=== PATIENT | male | born 1960 | race Caucasian/White ===

== ENCOUNTER 2019-11-16 21:08 | Emergency (ER) | payer OTHER, SELFPAY ==
--- NOTE | ~2019-11-16 | XR_ITS ---
XR chest 1V portable DATE: 11/16/2019 21:48 INDICATION: Shortness of breath. Covid-positive 6 days ago. TECHNIQUE: Portable AP chest on 12/03/2019 at 2141 hours COMPARISON: 05/01/2008 portable AP chest FINDINGS: Heart size is normal. No pulmonary vascular congestion or pneumothorax. No apparent pleural effusion. There is suggestion of mild patchy infiltrate and/atelectasis bilaterally, left greater than right. IMPRESSION: Suggestion of mild patchy infiltrate, left greater than right Reviewed, dictated and finalized at location A.
[2019-11-16 21:14] VITALS: BP 165/104; PULSE 73; RESP 17; TEMP 37; O2SAT 94
[2019-11-16 21:23] VITALS: BP 165/104; PULSE 73; PULSE 74; RESP 16; O2SAT 92
--- NOTE | 2019-11-16 21:29 | ECG_ITS ---
Measurements Intervals [place] Rate: 72 P: 29 [place]: 146 QRS: -33 QRSD: 113 T: 3 QT: 385 QTc: 423 Interpretive Statements SINUS RHYTHM LEFT AXIS DEVIATION INCOMPLETE RIGHT BUNDLE BRANCH BLOCK BORDERLINE T WAVE ABNORMALITY- ANT/INF LEADS BASELINE WANDER- I, II BORDERLINE ECG Electronically Signed On 11-17-2019 6:54:26 CDT by Kosta Reid D.O.
--- NOTE | 2019-11-16 21:32 | ED.SOB ---
HPI - SOB/Dyspnea General Chief Complaint: Shortness of Breath/Dyspnea Stated Complaint: short of breath, diagnosed last wednesday Time Seen by Provider: 11/16/19 21:14 Source: patient Mode of arrival: ambulatory Limitations: no limitations History of Present Illness HPI Narrative: This patient is a 58 year old male with history of hypertension and recent diagnosis of COVID 19 who presents for evaluation of shortness of breath . He reports 1 week ago he developed headache, chills, loss of taste/smell, myalgia and a dry cough. He tested positive for COVID-19 on Wednesday. Over the weekend, he states his headache and chills resolved, but over the past 3 days he has been developing some sob. Tonight he reports he was laying there and he felt like he was sob talking . He denies fever, nausea, vomiting or diarrhea. He also denies chest pain. Related Data Home Medications Medication Instructions Recorded Confirmed atorvastatin 40 mg tablet 40 mg PO DAILY 08/10/19 08/10/19 lisinopril 10 1 tablet PO DAILY 08/10/19 08/10/19 mg-hydrochlorothiazide 12.5 mg tablet loratadine 10 mg capsule 10 mg PO DAILY 08/10/19 08/10/19 melatonin 10 mg capsule 10 mg PO cap 08/10/19 08/10/19 montelukast 10 mg tablet 10 mg PO DAILY 08/10/19 08/10/19 trazodone 50 mg tablet 50 mg PO DAILY tablet 08/10/19 08/10/19 Allergies Allergy/AdvReac Type Severity Reaction Status Date / Time Cephalosporins Allergy Severe Wheezing Verified 11/15/19 12:58 latex Allergy Severe CANKER Verified 11/15/19 12:58 SORES benzonatate Allergy Unknown Unknown Verified 11/15/19 12:58 ceftriaxone Allergy Unknown unk Verified 11/15/19 12:58 Penicillins Allergy Unknown Unknown Verified 11/15/19 12:58 CEFTRIAXONE SODIUM Allergy Severe Stopped Uncoded 11/15/19 12:58 Breathing Review of Systems Review of Systems: All systems reviewed & are unremarkable except as noted in HPI and below Constitutional: Constitutional: Reports chills and Reports fatigue ENT: Denies dizziness and Denies sore throat Cardiovascular: Cardiovascular: Denies chest pain Respiratory: Respiratory: Reports cough, Reports dyspnea and Denies wheezing Gastrointestinal: Gastrointestinal: Denies abdominal pain, Denies diarrhea, Denies nausea and Denies vomiting Neurologic: Reports headache(s) (now resolved) [facility] Past Medical History Medical History (Updated 11/16/19 @ 23:00 by Claudine Yin MD) Essential (primary) hypertension Surgical History Surgical History (Updated 11/16/19 @ 21:39 by Claudine Yin MD) Hx of appendectomy Social History Social History Smoking status: Never smoker Alcohol intake: current Exam Const: General: healthy appearing, no acute distress and alert Orientation/consciousness: patient oriented x3 HENMT: Head: normocephalic and atraumatic Face and sinus: face symmetric Mouth: Yes Normal oral and palatal mucosa present, Yes lip normal, Yes oropharynx normal and Yes moist mucous membranes Eyes: EOM: EOMs intact bilaterally Chest: Chest palpation & inspection: normal inspection of the chest Resp: Effort & Inspection: normal respiratory effort, no retractions and no use of accessory muscles Auscultation: clear to auscultation bilaterally and no wheezes Cardio: Rate: regular rate Rhythm: regular rhythm Heart sounds: no murmurs GI: GI Palp: Yes Soft to palpation, No Tenderness to palpation present (GI), No Guarding due to palpation present (GI) and No Rigid due to palpation Skin: General skin exam: normal color Rashes: no rashes Neuro: General: patient oriented x3, moves all extremities and CN's II-XI intact bilaterally Course Reevaluation(s) Reevaluation #1: I discussed with patient that xray shows pneumonia likely from covid. His oxygen saturation runs 92-96% on room air. I discussed with patient options of observing in hospital overnight and going home for outpatient observa
[2019-11-16 21:44] LABS: Basophils Percent Auto 0.4 % (0.2-1.2); Eosinophils Percent Auto 0.4 % (0-4.4); Hematocrit 46.1 % (42.0-52.0); Hemoglobin 15.9 g/dL (14.0-18.0); Immature Granulocyte Absolute 0.01 K/mm3 (0.00-0.031); Immature Granulocyte Percent A 0.2 % (0-0.5); Lymphocytes Absolute Auto 1.02 K/mm3 (0.9-3.2); Lymphocytes Percent Auto 22.7 % (18.3-44.2); Mean Corpuscular HGB Conc 34.5 g/dl (32-36); Mean Corpuscular Hemoglobin 31.2 pg (26-34); Mean Corpuscular Volume 90.4 fl (80-100); Mean Platelet Volume 9.9 fl (7.4-10.4); Monocytes Absolute Auto 0.4 K/mm3 (0.1-0.6); Monocytes Percent Auto 9.3 % (2.6-8.5); Platelet Count Result 221 k/mm3 (150-375); Red Cell Distribution Width 11.8 % (11.5-14.5); White Blood Count 4.5 K/mm3 (4.5-10.0)
[2019-11-16 21:58] LABS: Alanine Aminotransferase 41 U/L (4-50); Albumin Level 3.7 g/dL (3.5-5.1); Alkaline Phosphatase 101 U/L (38-126); Anion Gap 6 mmol/L (8-16); Aspartate Amino Transferase 50 U/L (17-59); Bilirubin,Total 0.5 mg/dL (0.2-1.3); Blood Urea Nitrogen 18 mg/dL (9-20); Calcium 8.3 mg/dL (8.4-10.2); Carbon Dioxide 29 mmol/L (22-30); Chloride 100 mmol/L (98-107); Estimated Glomerular Filt Rate > 60; Glucose 168 mg/dL (75-110); Potassium 3.5 mmol/L (3.4-5.0); Sodium 135 mmol/L (137-145)
[2019-11-16 21:59] LABS: INR 0.9; Prothrombin Time 11.7 Seconds (11.1-14.7)
[2019-11-16 22:00] LABS: Partial Thromboplastin Time 31.3 SECONDS (22.3-36.8)
[2019-11-16 22:02] LABS: D Dimer 0.41 ug/mL (<0.48)
[2019-11-16 23:27] VITALS: BP 132/86; PULSE 64; RESP 22; O2SAT 94
== END 2019-11-16 23:28 | disposition home or self-care (01) ==
PROVIDERS: Emergency Provider General Practice; PCP Family Medicine
DX: U07.1 COVID-19 (principal); J12.89 Other viral pneumonia; I10 Essential (primary) hypertension; I45.10 Unspecified right bundle-branch block; R94.31 Abnormal electrocardiogram [ECG] [EKG]
CPT/HCPCS: 36415; 71045; 80053; 85025; 85380; 85610; 85730; 86140; 93005; 99283

== ENCOUNTER 2020-02-26 07:49 | Outpatient (CLI) | payer OTHER, SELFPAY ==
--- NOTE | ~2020-02-26 | XR_ITS ---
XR_CERV2-3V_CR 02/26/2020 08:08 Indication: Cervicalgia. No acute injury. Procedure: 4 view cervical spine Comparison: No prior studies for comparison. Findings: Normal cervical alignment. Vertebral body and disc heights are preserved. No prevertebral s oft tissue abnormalities. There is atherosclerosis of the carotid arteries. Odontoid process within n ormal limits. Lung apices are normal. There are mild uncinate degenerative changes at multiple levels . Impression: 1: Mild cervical spondylosis. Reviewed, dictated and finalized at location A. 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
--- NOTE | ~2020-02-26 | XR_ITS ---
XR lumbar spine 2-3V 02/26/2020 08:08 Indication: Lumbago. Sciatica. Procedure: 3 views lumbar spine Comparison: No prior studies for comparison. Findings: There is mild disc narrowing at L4-5 and L5-S1. No fracture or traumatic malalignment. No e vidence for spondylolisthesis. Pedicles intact. Sacral foramen are symmetric. Impression: 1: Mild lumbar spondylosis. Reviewed, dictated and finalized at location A. ROLLER Impression: 1: Mild lumbar spondylosis.
[2020-02-26 08:56] LABS: Basophils Absolute Auto 0.1 K/mm3 (0.0-0.1); Basophils Percent Auto 1.4 % (0.2-1.2); Eosinophils Absolute Auto 0.1 K/mm3 (0-0.3); Eosinophils Percent Auto 2.2 % (0-4.4); Hematocrit 46.7 % (42.0-52.0); Hemoglobin 15.8 g/dL (14.0-18.0); Immature Granulocyte Absolute 0.01 K/mm3 (0.00-0.031); Immature Granulocyte Percent A 0.2 % (0-0.5); Lymphocytes Absolute Auto 1.66 K/mm3 (0.9-3.2); Lymphocytes Percent Auto 33.6 % (18.3-44.2); Mean Corpuscular HGB Conc 33.8 g/dl (32-36); Mean Corpuscular Hemoglobin 31.3 pg (26-34); Mean Corpuscular Volume 92.7 fl (80-100); Mean Platelet Volume 9.8 fl (7.4-10.4); Monocytes Absolute Auto 0.5 K/mm3 (0.1-0.6); Monocytes Percent Auto 9.1 % (2.6-8.5); Neutrophils Absolute Auto 2.6 K/mm3 (1.3-6.7); Neutrophils Percent Auto 53.5 % (45.5-73.1); Platelet Count Result 233 k/mm3 (150-375); Red Blood Count 5.04 M/mm3 (4.6-6.20); Red Cell Distribution Width 12.4 % (11.5-14.5); White Blood Count 4.9 K/mm3 (4.5-10.0)
[2020-02-26 08:57] LABS: Anion Gap 4 mmol/L (8-16); Blood Urea Nitrogen 18 mg/dL (9-20); Calcium 9.2 mg/dL (8.4-10.2); Carbon Dioxide 34 mmol/L (22-30); Chloride 101 mmol/L (98-107); Cholesterol 140 mg/dL (0-200); Estimated Glomerular Filt Rate > 60; Glucose 104 mg/dL (75-110); HDL Direct 50 mg/dL; Potassium 3.9 mmol/L (3.4-5.0); Sodium 139 mmol/L (137-145); Triglycerides 97 mg/dL (<150)
[2020-02-26 09:07] LABS: LDL Cholesterol Direct 69 mg/dL
== END 2020-02-26 07:50 | disposition home or self-care (01) ==
LOC: ANHIMG 07:51
PROVIDERS: PCP Family Medicine; Visit Provider Nurse Practitioner Family
DX: E78.2 Mixed hyperlipidemia (principal); Z13.29 Encounter for screening for other suspected endocrine disorder; I10 Essential (primary) hypertension; M54.41 Lumbago with sciatica, right side; M47.892 Other spondylosis, cervical region; M47.896 Other spondylosis, lumbar region
CPT/HCPCS: 36415; 72040; 72100; 80048; 80061; 84443; 85025

== ENCOUNTER 2020-03-20 14:36 | Emergency (ER) | payer OTHER, SELFPAY ==
--- NOTE | ~2020-03-20 | XR_ITS ---
EXAMINATION: XR chest 2V DATE: 03/20/2020 15:19 INDICATION: Chest tightness. TECHNIQUE: Frontal and lateral views of the chest were obtained. COMPARISON: Chest single view 11/16/2019 FINDINGS: There are mild airspace opacities in left midlung zone. No pleural effusion or pneumothorax . The heart size is normal. IMPRESSION: 1. Mild airspace opacities in left midlung zone, consistent with atelectasis versus pneumonia. Reviewed, dictated and finalized at location A. L CLERK IMPRESSION: 1. Mild airspace opacities in left midlung zone, consistent with atelectasis ve rsus pneumonia.
[2020-03-20 14:39] VITALS: BP 203/104; PULSE 50; RESP 16; TEMP 36.2; O2SAT 100
--- NOTE | 2020-03-20 14:43 | ECG_ITS ---
Measurements Intervals [place] Rate: 50 P: 30 [place]: 151 QRS: -20 QRSD: 114 T: 11 QT: 456 QTc: 419 Interpretive Statements SINUS BRADYCARDIA INCOMPLETE RIGHT BUNDLE BRANCH BLOCK BASELINE ARTIFACT- I, II, AVR, AVF BORDERLINE ECG Electronically Signed On 03-20-2020 15:01:59 OPERATIONS ASSOCIATE by Kosta Reid D.O.
--- NOTE | 2020-03-20 14:53 | ED.RECABL ---
HPI - Recheck/Abnormal Lab/Rx General Chief Complaint: Recheck/Abnormal Lab/Rx Stated Complaint: HBP Time Seen by Provider: 03/20/20 14:53 Source: patient Mode of arrival: ambulatory Limitations: no limitations History of Present Illness HPI narrative: Patient is a 59-year-old gentleman with a history of hypertension who presents for evaluation of elevated blood pressure readings. Patient reportedly had a dental procedure done several days previously and was noted to have elevated blood pressure readings at his dental procedure. Patient followed up with his primary care physician, and was instructed to increase his lisinopril from 10 mg to 20 mg and to keep a daily blood pressure log. Patient states his blood pressures have been running between 160s systolics and 200 systolics. He did 3 days ago increase his lisinopril to 30 mg daily. He states he otherwise feels well. He denies any current chest pain or shortness of breath. At times he does notice some chest pressure but denies currently having any symptoms. No syncopal events. No severe headache. No numbness or weakness. Of note, patient had Covid infection in November and has had quite a prolonged recovery from this. Related Data Home Medications Medication Instructions Recorded Confirmed loratadine 10 mg capsule 10 mg PO DAILY 08/10/19 02/19/20 melatonin 10 mg capsule 10 mg PO cap 08/10/19 02/19/20 lisinopril 30 mg PO DAILY 03/20/20 Allergies Allergy/AdvReac Type Severity Reaction Status Date / Time Cephalosporins Allergy Severe Wheezing Verified 03/20/20 15:00 latex Allergy Severe CANKER Verified 03/20/20 15:00 SORES benzonatate Allergy Unknown Unknown Verified 03/20/20 15:00 ceftriaxone Allergy Unknown unk Verified 03/20/20 15:00 Penicillins Allergy Unknown Unknown Verified 03/20/20 15:00 CEFTRIAXONE SODIUM Allergy Severe Stopped Uncoded 03/20/20 15:00 Breathing Review of Systems Review of Systems: Narrative: CONSTITUTIONAL: Denies fever, chills, or sweats. EYES: Denies visual changes ENT: Denies rhinorrhea, congestion, sore throat, or otalgia. CARDIOVASCULAR: Denies current chest pain, palpitations, or edema. RESPIRATORY: Denies cough or dyspnea. GASTROINTESTINAL: Denies abdominal pain, nausea, vomiting, or diarrhea. GENITOURINARY: Denies dysuria or hematuria. SKIN: Denies rash or itching. MUSCULOSKELETAL: Denies back pain, joint pain, or myalgia. NEUROLOGIC: Denies headache, numbness, or weakness. [facility] Past Medical History Medical History (Updated 03/20/20 @ 17:01 by Karyn Ross MD) Acute bilateral low back pain without sciatica Acute low back pain with sciatica Asthma BMI 28.0-28.9,adult Essential (primary) hypertension Low kidney function Mixed hyperlipidemia Neck pain Pneumonia due to COVID-19 virus Thyroid disorder screening Surgical History Surgical History Hx of appendectomy Family History Family History Mother Family history of glaucoma Hypertension Family history of diabetes mellitus in first degree relative Father Hypertension Sibling Cerebrovascular accident Grandparent Family history of coronary artery disease Diabetes mellitus Social History Social History Smoking status: Never smoker Alcohol intake: current Substance use: never Gender identity (if verbalized by the patient): Male Exam Narrative: Exam Narrative: GENERAL: Awake, alert, conversant HEAD: Normocephalic, atraumatic. EYES: PERRLA and EOMI. ENT: Nares clear, no rhinorrhea or epistaxis. Mucous membranes moist. NECK: Supple. CHEST: No respiratory distress, breathing even and non labored HEART: Regular rate, sinus rhythm, no murmur rubs or gallops ABDOMEN:Non distended, non tender EXTREMITIES: Normal range of motion. No edema. SKIN: Warm, dry, no rash. NEURO:
[2020-03-20 15:09] LABS: Basophils Absolute Auto 0.1 K/mm3 (0.0-0.1); Basophils Percent Auto 1.3 % (0.2-1.2); Eosinophils Absolute Auto 0.1 K/mm3 (0-0.3); Eosinophils Percent Auto 0.9 % (0-4.4); Hematocrit 47.2 % (42.0-52.0); Hemoglobin 16.3 g/dL (14.0-18.0); Immature Granulocyte Absolute 0.01 K/mm3 (0.00-0.031); Immature Granulocyte Percent A 0.2 % (0-0.5); Lymphocytes Absolute Auto 1.84 K/mm3 (0.9-3.2); Lymphocytes Percent Auto 33.2 % (18.3-44.2); Mean Corpuscular HGB Conc 34.5 g/dl (32-36); Mean Corpuscular Hemoglobin 30.8 pg (26-34); Mean Corpuscular Volume 89.2 fl (80-100); Mean Platelet Volume 9.7 fl (7.4-10.4); Monocytes Absolute Auto 0.4 K/mm3 (0.1-0.6); Monocytes Percent Auto 7.6 % (2.6-8.5); Neutrophils Absolute Auto 3.2 K/mm3 (1.3-6.7); Neutrophils Percent Auto 56.8 % (45.5-73.1); Platelet Count Result 261 k/mm3 (150-375); Red Blood Count 5.29 M/mm3 (4.6-6.20); Red Cell Distribution Width 11.9 % (11.5-14.5); White Blood Count 5.5 K/mm3 (4.5-10.0)
--- NOTE | 2020-03-20 15:10 | PC.NURSE ---
Asked pt for urine sample, pt is currently trying
[2020-03-20 15:19] LABS: Alanine Aminotransferase 38 U/L (4-50); Albumin Level 4.1 g/dL (3.5-5.1); Alkaline Phosphatase 76 U/L (38-126); Anion Gap 4 mmol/L (8-16); Aspartate Amino Transferase 34 U/L (17-59); Blood Urea Nitrogen 16 mg/dL (9-20); Calcium 9.4 mg/dL (8.4-10.2); Carbon Dioxide 35 mmol/L (22-30); Chloride 99 mmol/L (98-107); Estimated CRCL calculation 72 ml/min; Estimated Glomerular Filt Rate > 60; Glucose 97 mg/dL (75-110); Potassium 3.8 mmol/L (3.4-5.0); Sodium 138 mmol/L (137-145)
[2020-03-20] MEDS: hydrALAZINE HCL 20 MG/ML VIAL 10 MG IV PUSH (15:22)
[2020-03-20 15:24] VITALS: BP 150/95; PULSE 49; RESP 15; O2SAT 98
[2020-03-20 15:31] LABS: Add Urine Microscopic? NO; Appearance Urine Clear (Clear); Bilirubin Urine Negative (Negative); Blood Urine Negative (Negative); Color Urine Straw (Yellow); Glucose Urine UA Negative (Negative); Ketones Urine Negative (Negative); Leukocyte Esterase Ur Negative LEU/UL (Negative); Nitrate Urine Negative (Negative); Protein Urine Negative (Negative); Specific Grav Ur 1.012 (1.001-1.035); Urobilinogen Urine Negative mg/dL (<2.0)
[2020-03-20 15:31] LABS: Troponin I < 0.012 ng/mL (0.000-0.034)
[2020-03-20 15:34] LABS: INR 0.9; Partial Thromboplastin Time 27.1 SECONDS (22.3-36.8)
[2020-03-20 16:18] VITALS: BP 140/83; PULSE 54; RESP 15; O2SAT 98
[2020-03-20 17:10] VITALS: BP 140/89; PULSE 55; RESP 15; O2SAT 97
== END 2020-03-20 17:05 | disposition home or self-care (01) ==
PROVIDERS: Emergency Provider Emergency Medicine; PCP Family Medicine
DX: I10 Essential (primary) hypertension (principal); J45.909 Unspecified asthma, uncomplicated; E78.2 Mixed hyperlipidemia; Z86.16 Personal history of COVID-19; R91.8 Other nonspecific abnormal finding of lung field; I45.10 Unspecified right bundle-branch block; R00.1 Bradycardia, unspecified
CPT/HCPCS: 36415; 71046; 80053; 81003; 84484; 85025; 85610; 85730; 93005; 96374; 99284; J0360

== ENCOUNTER 2020-05-13 14:21 | Outpatient (CLI) | payer OTHER, SELFPAY ==
--- NOTE | 2020-05-14 13:35 | P.PCNPFT_ITS ---
PFT Interpretation This is a pulmonary function test with pre and post-bronchodilator spirometry, plethysmography and diffusing capacity. The test was performed and results interpreted in accordance with the 2019 and 2005 ATS/ERS Task Force guidelines respectively using the Global Lung Function Initiative-2012 reference equations. Findings: Spirometry: The contour of the inspiratory and expiratory flow tracing are normal. The pre bronchodilator FVC is 4.76 L, 84% predicted. The pre bronchodilator FEV1 is 3.60 L, 83% predicted. The FEV1: FVC ratio is 76. The p ost bronchodilator FVC is 4.69 L, representing 1% decrease. The post bronchodilator FEV1 is 3.62 L, representing 1% increase. Plethysmography: The total lung capacity is 6.46, 80% predicted. The functional residual capacity is 2.58, 61% predicted. The residual volume is 1.70, 69% predicted. Diffusing capacity the absolute diffusion capacity is 22.0, 71% predicted. The diffusing capacity corrected for alveolar volume is 4.85, 120% predicted. Impression: The spirometry is normal without evidence of an obstructive abnormality. There is no significant improvement after inhaling a single dose of albuterol. The total lung capacity is normal with a decreased functional residual capacity and residual volume. this is an abnormal but nonspecific lung volume pattern. The absolute diffusing capacity is mildly decreased but normalizes when corrected for alveolar volume. There are no prior studies for comparison
== END 2020-05-13 14:22 | disposition home or self-care (01) ==
LOC: ANHPFT 14:22
PROVIDERS: Family Provider Family Medicine; PCP Family Medicine; Visit Provider Nurse Practitioner Family
DX: U07.1 COVID-19 (principal); J98.11 Atelectasis; R05 Cough; J12.89 Other viral pneumonia
CPT/HCPCS: 94060; 94726; 94729

== ENCOUNTER 2024-12-04 16:01 | Outpatient (CLI) | payer OTHER, SELFPAY ==
--- NOTE | ~2024-12-04 | XR_ITS ---
EXAMINATION: XR shoulder RT min 2V, 12/04/2024 16:07 CDT HISTORY: M25.511 - Pain in right shoulder COMPARISON: No comparisons available. Findings: No acute fracture or malalignment. No significant degenerative changes. Soft tissues unremarkable. Impression: No acute fracture or malalignment. Reviewed, dictated and finalized at location A. Impression: No acute fracture or malalignment.
--- NOTE | ~2024-12-04 | XR_ITS ---
XR_CERV2-3V_CR Indication: M54.2 - Cervicalgia Comparison: None Findings: The vertebral heights are intact. No fracture or subluxation. Moderate loss of disc height C5-6 and C6-7. Soft tissues unremarkable Impression: No acute abnormality. Reviewed, dictated and finalized at location A. Impression: No acute abnormality.
--- NOTE | ~2024-12-04 | XR_ITS ---
XR thoracolumbar Indication: M54.9 - Dorsalgia, unspecified Comparison: None Findings: The vertebral heights are intact. No fracture or subluxation. The disc heights are intact. Soft tissues unremarkable Impression: No acute abnormality. Reviewed, dictated and finalized at location A. Impression: No acute abnormality.
== END 2024-12-04 16:02 | disposition home or self-care (01) ==
LOC: MICIMG 16:02
PROVIDERS: PCP Family Medicine
DX: M25.511 Pain in right shoulder (principal); M54.2 Cervicalgia
CPT/HCPCS: 72040; 72080; 73030